=== PATIENT | female | born 2000 | race Caucasian/White ===

== ENCOUNTER 2019-09-26 01:40 | Emergency (ER) | payer MEDICAID ==
[2019-09-26 02:02] VITALS: BP 128/71
[2019-09-26 02:42] LABS: Basophils % (Auto) 0.2 % (0.0-1.8); Eosinophils % (Auto) 0.6 % (0.0-4.3); Hematocrit 39.2 % (30.3-42.9); Hemoglobin 13.5 gm/dl (10.1-14.3); Lymphocytes # (Auto) 2.4 K/mm3 (1.2-5.4); Lymphocytes % (Auto) 31.2 % (13.4-35.0); Mean Corpuscular HGB Conc 35 % (30-34); Mean Corpuscular Volume 95 fl (79-97); Monocytes # (Auto) 0.6 K/mm3 (0.0-0.8); Monocytes % (Auto) 7.8 % (0.0-7.3); Platelet Count 256 K/mm3 (140-440); Red Blood Count 4.13 M/mm3 (3.65-5.03); Red Cell Distribution Width 12.8 % (13.2-15.2)
--- NOTE | 2019-09-26 04:25 | Ultrasound Report ---
ULTRASOUND OBSTETRIC Indication: 5 weeks /abd cramping Findings: There is a single, living intrauterine . [place]-rump length = 0.61 cm = 6 weeks, 3 day(s). heart rate ranged from 99-104 beats per minute.. Right ovary is unremarkable. The left ovary is not seen. Impression: Single, living intrauterine with estimated sonographic age of 6 weeks, 3 day(s). Signer Name: Amilcar Jara MD Signed: 09/26/2019 4:21 AM Workstation Name: [id number]
[2019-09-26] MEDS ORDERED: diphenhydrAMINE 25 MG CAP PO ONE (04:58)
[2019-09-26] MEDS ORDERED: METOCLOPRAMIDE 10 MG TAB PO ONE (04:58)
--- NOTE | 2019-09-26 05:05 | Emergency Department Report ---
ED General Adult HPI - General Chief complaint: Abdominal Pain Stated complaint: PREG 5WKS/VOMITING/HOT FLASHES Time Seen by Provider: 09/26/19 04:39 Source: patient Mode of arrival: Ambulatory Limitations: No Limitations - History of Present Illness Initial comments: 19-year-old -[place] female patient who is 5 weeks presents with complaints of lower abdominal cramping, vaginal spotting, and nausea and vomiting x 1.5 weeks. She denies any dysuria or hematuria or vaginal discharge. She also denies any hematemesis/coffee ground emesis. She is . She states lower abdominal pain is intermittent and rates it as a 7/10 in severity. -: Sudden Improves with: none Worsens with: none Associated Symptoms: denies other symptoms - Related Data Previous Rx's Medication Instructions Recorded Last Taken Type Metoclopramide [Reglan] 10 mg PO TID PRN #15 tab 09/26/19 Unknown Rx diphenhydrAMINE [Benadryl CAP] 25 mg PO Q8HR PRN #15 capsule 09/26/19 Unknown Rx Allergies Allergy/AdvReac Type Severity Reaction Status Date / Time tioconazole Allergy Swelling Verified 09/26/19 02:03 [From Monistat 1 (tioconazole)] ED Review of Systems ROS: Stated complaint: PREG 5WKS/VOMITING/HOT FLASHES Other details as noted in HPI Constitutional: denies: chills, diaphoresis, fever, malaise Respiratory: denies: cough, shortness of breath Cardiovascular: denies: chest pain Gastrointestinal: abdominal pain, nausea, vomiting. denies: diarrhea, constipation, hematemesis, melena, hematochezia Genitourinary: denies: urgency, dysuria, frequency, hematuria Musculoskeletal: denies: back pain Skin: denies: rash, lesions Neurological: denies: headache, weakness, paresthesias ED Past Medical Hx - Past Medical History Previous Medical History?: Yes Hx Asthma: Yes - Surgical History Past Surgical History?: Yes Additional Surgical History: c sec X1 - Social History Smoking Status: Never Smoker Substance Use Type: None - Medications Home Medications: Home Medications Medication Instructions Recorded Confirmed Last Taken Type Metoclopramide [Reglan] 10 mg PO TID PRN #15 tab 09/26/19 Unknown Rx diphenhydrAMINE [Benadryl CAP] 25 mg PO Q8HR PRN #15 capsule 09/26/19 Unknown Rx ED Physical Exam - General Limitations: No Limitations General appearance: alert, in no apparent distress - Head Head exam: Present: atraumatic, normocephalic - Eye Eye exam: Present: normal appearance. Absent: scleral icterus - ENT ENT exam: Present: mucous membranes moist - Neck Neck exam: Present: normal inspection - Respiratory Respiratory exam: Present: normal lung sounds bilaterally. Absent: respiratory distress - Cardiovascular Cardiovascular Exam: Present: regular rate, normal rhythm. Absent: systolic murmur, diastolic murmur, rubs, gallop - GI/Abdominal GI/Abdominal exam: Present: soft, tenderness (minimal suprapubic tenderness noted). Absent: distended, guarding, rebound, rigid - Extremities Exam Extremities exam: Present: normal inspection, full ROM - Back Exam Back exam: Present: normal inspection. Absent: CVA tenderness (R), CVA tenderness (L) - Neurological Exam Neurological exam: Present: alert, oriented X3 - Psychiatric Psychiatric exam: Present: normal affect, normal mood - Skin Skin exam: Present: warm, dry, intact, normal color. Absent: rash ED Course Vital Signs 09/26/19 01:55 Temperature 98.0 F Pulse Rate 82 Respiratory 18 Rate Blood Pressure 128/71 O2 Sat by Pulse 99 Oximetry ED Medical Decision Making - Lab Data Result diagrams: 09/26/19 02:30 - Radiology Data Radiology results: report reviewed ULTRASOUND OBSTETRIC Indication: 5 weeks /abd cramping Findings: There is a single, living intrauterine . [place]-rump length = 0.61 cm = 6 weeks, 3 day(s). heart rate ranged from 99-104 beats per minute.. Right ovary is unremarkable. The left ovary is not seen. Impression: Single, living intrauterine with estimated sonographic age of 6 weeks, 3 day(s). - Medical Decision Making 19-year-old female patient presents with complaints of lower abdominal cramping pain, vaginal spotting, and nausea and vomiting x 1.5 weeks. Ultrasound shows viable 6 weeks 4 days without any abnormal findings. CBC shows normal white count. Patient is nontoxic-appearing. UA results are pending. Patient is refusing blood type and Rh stating she is ready to leave. Patient encouraged to wait for results of UA and informed of the importance of checking her blood type and Rh given she has vaginal bleeding. Patient states she wants to sign out AMA. Patient states she is not currently following with a EXPENSE ANALYST-EXPENSE ANALYST information provided Critical care attestation.: If time is entered above; I have spent that time in minutes in the direct care of this critically ill patient, excluding procedure time. ED Disposition Clinical Impression: Vaginal bleeding during , Nausea/vomiting in , 6 weeks gestation of Disposition: LEFT AGAINST MED ADVICE Is pt being admited?: No Condition: Stable Instructions: (ED) Prescriptions: diphenhydrAMINE [Benadryl CAP] 25 mg PO Q8HR PRN #15 capsule PRN Reason: Nausea Metoclopramide [Reglan] 10 mg PO TID PRN #15 tab PRN Reason: Nausea Referrals: DYANA DUARTE MD [Staff Physician] - 2-3 Days
[2019-09-26 05:19] LABS: Bacteria,Urine 1+ /HPF (Negative); Bilirubin,Urine NEG (Negative); Blood,Urine NEG (Negative); Color,Urine Straw (Yellow); Protein,Urine <15 mg/dL mg/dL (Negative); Urobilinogen,Urine < 2.0 mg/dL (<2.0)
== END 2019-09-26 05:32 | disposition left against medical advice (07) ==
LOC: ED 01:40
DX: O46.91 Antepartum hemorrhage, unspecified, first trimester (principal); O21.8 Other vomiting complicating pregnancy; Z3A.01 Less than 8 weeks gestation of pregnancy; J45.909 Unspecified asthma, uncomplicated; Z98.890 Other specified postprocedural states; Z79.899 Other long term (current) drug therapy; Z88.8 Allergy status to other drugs, medicaments and biological substances
CPT/HCPCS: 36415; 76801; 81001; 84702; 85025

== ENCOUNTER 2019-10-30 21:25 | Emergency (ER) | payer SELFPAY ==
--- NOTE | 2019-10-30 22:13 | Emergency Department Report ---
<SHARAD NORTON - Last Filed: 10/30/19 23:31> ED Psych HPI - General Chief Complaint: Medical Clearance Stated Complaint: POSS OVERDOSE Time Seen by Provider: 10/30/19 21:43 Source: patient, EMS Mode of arrival: Stretcher Limitations: No Limitations - History of Present Illness Initial Comments: Shannan is 19 yo female who presents with suicidal ideation and drug overdose. She was angry after an argument with her boyfriend. She told him that she wanted to harm herself. She took 6 tabs of Tylenol PM at 6:30 PM in order to sleep. She has hx of depression with previous . Her daughter is now 3 years old. She is 11 weeks . She has received care at [facility]. She arrived per EMS. MD Complaint: suicidal ideation -: This evening Associated Psychiatric Symptoms: suicidal ideation History of same: No Quality: resolved prior to arrival Improves With: none Worsens With: none Context: significant life stressor (argument with boyfriend) If Self Harm: intentional overdose - Related Data Previous Rx's Medication Instructions Recorded Last Taken Type Metoclopramide [Reglan] 10 mg PO TID PRN #15 tab 09/26/19 Unknown Rx diphenhydrAMINE [Benadryl CAP] 25 mg PO Q8HR PRN #15 capsule 09/26/19 Unknown Rx Allergies Allergy/AdvReac Type Severity Reaction Status Date / Time tioconazole Allergy Swelling Verified 09/26/19 02:03 [From Monistat 1 (tioconazole)] ED Review of Systems Comment: All other systems reviewed and negative Constitutional: denies: fever, malaise Respiratory: denies: cough Cardiovascular: denies: chest pain Psychiatric: suicidal thoughts ED Past Medical Hx - Past Medical History Previous Medical History?: Yes Hx Asthma: Yes - Surgical History Past Surgical History?: Yes Additional Surgical History: c sec X1 - Social History Smoking Status: Never Smoker Substance Use Type: None - Medications Home Medications: Home Medications Medication Instructions Recorded Confirmed Last Taken Type Metoclopramide [Reglan] 10 mg PO TID PRN #15 tab 09/26/19 Unknown Rx diphenhydrAMINE [Benadryl CAP] 25 mg PO Q8HR PRN #15 capsule 09/26/19 Unknown Rx ED Physical Exam - General Limitations: No Limitations General appearance: alert, in no apparent distress - Head Head exam: Present: atraumatic, normocephalic - Eye Eye exam: Present: normal appearance - ENT ENT exam: Present: mucous membranes moist - Neck Neck exam: Present: normal inspection, full ROM - Respiratory Respiratory exam: Present: normal lung sounds bilaterally. Absent: respiratory distress, wheezes, rales, rhonchi - Cardiovascular Cardiovascular Exam: Present: regular rate, normal rhythm, normal heart sounds. Absent: systolic murmur, diastolic murmur, rubs, gallop - GI/Abdominal GI/Abdominal exam: Present: soft, normal bowel sounds. Absent: distended, tenderness, guarding, rebound - Extremities Exam Extremities exam: Present: normal inspection - Neurological Exam Neurological exam: Present: alert, oriented X3 - Psychiatric Psychiatric exam: Present: normal affect, agitated, other (Angry) - Skin Skin exam: Present: warm, dry, intact, normal color. Absent: rash ED Medical Decision Making - Medical Decision Making Shannan presents with suicidal ideation and intentional drug overdose. Fortunately the amount of Tylenol and Benadryl is not toxic. Due to poor insight and impulsivity, she is at risk of endangering her self and fetus. Therefore, she is placed on 1013 involuntary hold protocol. She is medically clear for psychiatric care. Shannan has been uncooperative with treatment plan. She is upset that she will be in involuntary hold. Her mother at the bedside is in agreement that she will need psychiatric care. Mother agrees with treatment plan. She has refused to change from her clothing into scrubs according to our protocol. She would not cooperate with blood draw. ED Disposition Clinical Impression: Overdose Qualifiers: Encounter type: initial encounter Injury intent: accidental or unintentional Qualified Code(s): T50.901A - Poisoning by unspecified drugs, medicaments and biological substances, accidental (unintentional), initial encounter Disposition: DC-01 TO HOME OR SELFCARE Condition: Stable <WYATT NORTON - Last Filed: 10/31/19 14:04> ED Review of Systems ROS: Stated complaint: POSS OVERDOSE Other details as noted in HPI ED Course Vital Signs 10/30/19 10/31/19 10/31/19 21:49 01:15 03:00 Temperature 98.4 F 98.3 F Pulse Rate 99 H 94 H Respiratory 16 20 17 Rate Blood Pressure 109/68 109/70 [Left] O2 Sat by Pulse 99 100 99 Oximetry 10/31/19 07:47 Temperature Pulse Rate Respiratory 15 Rate Blood Pressure [Left] O2 Sat by Pulse Oximetry - Reevaluation(s) Reevaluation #1: 10/31/19 14:02 Patient is a 19-year-old female who was brought in yesterday because family was concerned that she wanted to harm herself. Patient intentionally took 1500 mg of acetaminophen with Benadryl in order to try to sleep. When she went to sleep family could not reach her and they assumed that she had tried to harm herself. Police were called and she was brought into the emergency department. Patient was able to sleep and rest here overnight. Patient states that she has no social reason to harm herself and that she does want to live for her 3-year-old child and she is currently as well which was planned. Patient has contracted for safety and was been seen by our mental health assessors and her 1013 has been rescinded. Patient is stable for discharge at this time. ED Medical Decision Making - Lab Data Result diagrams: 10/31/19 02:44 10/31/19 02:44 Critical care attestation.: If time is entered above; I have spent that time in minutes in the direct care of this critically ill patient, excluding procedure time. ED Disposition Is pt being admited?: No Does the pt Need Aspirin: No Time of Disposition: 14:04
[2019-10-31 03:15] LABS: Basophils % (Auto) 0.1 % (0.0-1.8); Eosinophils % (Auto) 0.1 % (0.0-4.3); Hematocrit 37.5 % (30.3-42.9); Lymphocytes # (Auto) 2.1 K/mm3 (1.2-5.4); Lymphocytes % (Auto) 26.8 % (13.4-35.0); Mean Corpuscular HGB Conc 35 % (30-34); Mean Corpuscular Volume 96 fl (79-97); Monocytes # (Auto) 0.3 K/mm3 (0.0-0.8); Platelet Count 225 K/mm3 (140-440); Red Blood Count 3.92 M/mm3 (3.65-5.03); Red Cell Distribution Width 12.3 % (13.2-15.2)
[2019-10-31 03:39] LABS: Alanine Aminotransferase 8 units/L (7-56); Albumin 4.4 g/dL (3.9-5); BUN/Creatinine Ratio 12; Blood Urea Nitrogen 7 mg/dL (7-17); Calcium 9.6 mg/dL (8.4-10.2); Hemolysis Index 0
[2019-10-31 05:54] LABS: Amphetamine Screen,Urine PRESUMPTIVE NEGATIVE; Benzodiazepines Screen,Urine PRESUMPTIVE NEGATIVE; Cannabinoid Screen,Urine PRESUMPTIVE NEGATIVE; Cocaine Screen,Urine PRESUMPTIVE NEGATIVE; Methadone Screen,Urine PRESUMPTIVE NEGATIVE; Opiate Screen,Urine PRESUMPTIVE NEGATIVE
[2019-10-31 06:01] LABS: Bacteria,Urine 2+ /HPF (Negative); Bilirubin,Urine NEG (Negative); Blood,Urine NEG (Negative); Color,Urine Yellow (Yellow); Protein,Urine <15 mg/dL mg/dL (Negative); Urobilinogen,Urine < 2.0 mg/dL (<2.0)
[2019-10-31 14:16] VITALS: BP 107/68
== END 2019-10-31 14:17 | disposition home or self-care (01) ==
LOC: ED 21:25
DX: O9A.211 Injury, poisoning and certain other consequences of external causes complicating pregnancy, first trimester (principal); T50.901A Poisoning by unspecified drugs, medicaments and biological substances, accidental (unintentional), initial encounter; O99.511 Diseases of the respiratory system complicating pregnancy, first trimester; J45.909 Unspecified asthma, uncomplicated; Z88.8 Allergy status to other drugs, medicaments and biological substances; Z3A.11 11 weeks gestation of pregnancy
CPT/HCPCS: 36415; 80053; 80307; 80320; 81001; 85025; G0480

== ENCOUNTER 2019-11-05 22:39 | Emergency (ER) | payer SELFPAY | END 2019-11-05 22:45 | disposition left against medical advice (07) | LOC: ED 22:39 | DX: O26.891 Other specified pregnancy related conditions, first trimester (principal); R10.30 Lower abdominal pain, unspecified; Z3A.12 12 weeks gestation of pregnancy; Z53.21 Procedure and treatment not carried out due to patient leaving prior to being seen by health care provider ==

== ENCOUNTER 2019-11-10 02:06 | Emergency (ER) | payer SELFPAY | END 2019-11-10 02:09 | disposition left against medical advice (07) | LOC: ED 02:06 | DX: O26.891 Other specified pregnancy related conditions, first trimester (principal); Z3A.13 13 weeks gestation of pregnancy; Z53.21 Procedure and treatment not carried out due to patient leaving prior to being seen by health care provider ==

== ENCOUNTER 2019-12-11 13:06 | Emergency (ER) | payer SELFPAY ==
--- NOTE | 2019-12-11 13:29 | Emergency Department Report ---
ED Female HPI - General Chief complaint: Vaginal Bleeding Stated complaint: 17 WKS PREG, CRAMPING. BLEEDING Time Seen by Provider: 12/11/19 13:28 Source: patient Mode of arrival: Ambulatory Limitations: No Limitations - History of Present Illness Initial comments: 19 YO FEMALE COME TO ER WITH BILATERAL GROIN PAIN. SHE IS PREG BUT OBGYN WILL NOT SEE HER DUE TO INSURANCE ISSUES. REPORTED VAG BLEED TO TRIAGE BUT DENIED TO ME. NO ABNORMAL VAG DC. NO BACK OR ABD PAIN. NOT PASSING TISSUE. NO FEVER OR CHILLS. AMBULATORY AND TAKING PO MD Complaint: vaginal bleeding -: Gradual Quality: cramping Worsens with: none Are you Now?: Yes - Related Data Sexually active: Yes : 4 Para: 1 A: 2 Previous Rx's Medication Instructions Recorded Last Taken Type Metoclopramide [Reglan] 10 mg PO TID PRN #15 tab 09/26/19 Unknown Rx diphenhydrAMINE [Benadryl CAP] 25 mg PO Q8HR PRN #15 capsule 09/26/19 Unknown Rx Nitrofurantoin [place]/M-Cryst 100 mg PO Q12HR #10 capsule 12/11/19 Unknown Rx [Macrobid CAP] Allergies Allergy/AdvReac Type Severity Reaction Status Date / Time tioconazole Allergy Swelling Verified 12/11/19 13:09 [From Monistat 1 (tioconazole)] ED Review of Systems ROS: Stated complaint: 17 WKS PREG, CRAMPING. BLEEDING Other details as noted in HPI Comment: All other systems reviewed and negative ED Past Medical Hx - Past Medical History Previous Medical History?: Yes Hx Asthma: Yes (EXCERISE INDUCED) Additional medical history: OVARIAN CYST - Surgical History Past Surgical History?: Yes Additional Surgical History: c sec X1 - Family History Family history: no significant - Social History Smoking Status: Never Smoker Substance Use Type: None - Medications Home Medications: Home Medications Medication Instructions Recorded Confirmed Last Taken Type Metoclopramide [Reglan] 10 mg PO TID PRN #15 tab 09/26/19 Unknown Rx diphenhydrAMINE [Benadryl CAP] 25 mg PO Q8HR PRN #15 capsule 09/26/19 Unknown Rx Nitrofurantoin [place]/M-Cryst 100 mg PO Q12HR #10 capsule 12/11/19 Unknown Rx [Macrobid CAP] ED Physical Exam - General Limitations: No Limitations General appearance: alert, in no apparent distress - Head Head exam: Present: atraumatic, normocephalic - Eye Eye exam: Present: normal appearance - ENT ENT exam: Present: mucous membranes moist - Neck Neck exam: Present: normal inspection - Respiratory Respiratory exam: Present: normal lung sounds bilaterally. Absent: respiratory distress - Cardiovascular Cardiovascular Exam: Present: regular rate, normal rhythm. Absent: systolic murmur, diastolic murmur, rubs, gallop - GI/Abdominal GI/Abdominal exam: Present: soft, normal bowel sounds - Extremities Exam Extremities exam: Present: normal inspection - Back Exam Back exam: Present: normal inspection - Neurological Exam Neurological exam: Present: alert, oriented X3 - Psychiatric Psychiatric exam: Present: normal affect, normal mood - Skin Skin exam: Present: warm, dry, intact, normal color. Absent: rash ED Course Vital Signs 12/11/19 13:12 Temperature 98.2 F Pulse Rate 114 H Respiratory 18 Rate Blood Pressure 114/63 O2 Sat by Pulse 97 Oximetry ED Medical Decision Making - Lab Data Result diagrams: 12/11/19 13:45 12/11/19 13:45 - Radiology Data Radiology results: report reviewed, image reviewed - Medical Decision Making Vital Signs 12/11/19 13:12 Temperature 98.2 F Pulse Rate 114 H Respiratory 18 Rate Blood Pressure 114/63 O2 Sat by Pulse 97 Oximetry Labs 12/11/19 12/11/19 13:35 13:45 WBC 5.7 RBC 3.27 L Hgb 11.3 Hct 31.0 MCV 95 MCH 34 H MCHC 36 H RDW 13.4 Plt Count 194 Urine Color Yellow Urine Turbidity Slightly-cloudy Urine pH 7.0 Ur Specific [place] 1.018 Urine Protein <15 mg/dl Urine Glucose (UA) Neg Urine Ketones Neg Urine Blood Neg Urine Nitrite Neg Urine Bilirubin Neg Urine Urobilinogen 4.0 Ur Leukocyte Esterase Mod Urine WBC (Auto) 24.0 H Urine RBC (Auto) 3.0 U Epithel Cells (Auto) 19.0 H Urine Mucus Few Urine HCG, Qual Positive A Labs 12/11/19 12/11/19 12/11/19 13:35 13:45 13:45 WBC 5.7 RBC 3.27 L Hgb 11.3 Hct 31.0 MCV 95 MCH 34 H MCHC 36 H RDW 13.4 Plt Count 194 Sodium 136 L Potassium 4.5 Chloride 103.6 Carbon Dioxide 20 L Anion Gap 17 BUN 8 Creatinine 0.6 L Estimated GFR > 60 BUN/Creatinine Ratio 13 Glucose 78 Calcium 9.0 Urine Color Yellow Urine Turbidity Slightly-cloudy Urine pH 7.0 Ur Specific [place] 1.018 Urine Protein <15 mg/dl Urine Glucose (UA) Neg Urine Ketones Neg Urine Blood Neg Urine Nitrite Neg Urine Bilirubin Neg Urine Urobilinogen 4.0 Ur Leukocyte Esterase Mod Urine WBC (Auto) 24.0 H Urine RBC (Auto) 3.0 U Epithel Cells (Auto) 19.0 H Urine Mucus Few Urine HCG, Qual Positive A Vital Signs 12/11/19 13:12 Temperature 98.2 F Pulse Rate 114 H Respiratory 18 Rate Blood Pressure 114/63 O2 Sat by Pulse 97 Oximetry LABS NOTED RH POS UA NOTED IV ROCEPHIN AND NS GIVEN US NOTED DC HOME WITH DC POC AND OBGYN FOLLOW UP IN 48 HOURS SHE HAS SEEN PREMIER X 1 THIS PREG. SHE VERBALIZES UNDERSTANDING THAT HER NOT GETTING CARE INC RISK OF MORTALITY - Differential Diagnosis RO ECTOPIC/THREATENED AB/SPONT AB/UTI Critical care attestation.: If time is entered above; I have spent that time in minutes in the direct care of this critically ill patient, excluding procedure time. ED Disposition Clinical Impression: Disposition: DC-01 TO HOME OR SELFCARE Is pt being admited?: No Does the pt Need Aspirin: No Condition: Stable Instructions: (ED) Additional Instructions: follow up with obgyn avoid drugs/alcohol safe sex take tylenol for pain take daily over the counter multivitamin YOU NEED TO SEE OBGYN (NOT ER) IN 48 HOURS REFERRAL BELOW Prescriptions: Nitrofurantoin [place]/M-Cryst [Macrobid CAP] 100 mg PO Q12HR #10 capsule Referrals: PRIMARY CAREMD [Primary Care Provider] - 3-5 Days RONAK WHEELER MD [Staff Physician] - 3-5 Days Time of Disposition: 14:17
[2019-12-11 14:02] LABS: Bilirubin,Urine NEG (Negative); Blood,Urine NEG (Negative); Color,Urine Yellow (Yellow); Mucus,Urine FEW /HPF; Protein,Urine <15 mg/dL mg/dL (Negative)
[2019-12-11 14:04] LABS: HCG Qualitative,Urine Positive (Negative)
[2019-12-11 14:10] LABS: Hemoglobin 11.3 gm/dl (10.1-14.3); Mean Corpuscular HGB Conc 36 % (30-34); Mean Corpuscular Volume 95 fl (79-97); Platelet Count 194 K/mm3 (140-440); Red Blood Count 3.27 M/mm3 (3.65-5.03); Red Cell Distribution Width 13.4 % (13.2-15.2)
[2019-12-11 14:19] LABS: BUN/Creatinine Ratio 13; Blood Urea Nitrogen 8 mg/dL (7-17); Hemolysis Index 11
[2019-12-11] MEDS ORDERED: SODIUM CHLORIDE 0.9% 1000 ML 1,000 ML IV ONE (14:40)
[2019-12-11] MEDS ORDERED: cefTRIAXone/NS 1 GM/50 ML 1 GM/50 ML BAG IV ONE (14:40)
--- NOTE | 2019-12-11 14:44 | Ultrasound Report ---
OB ULTRASOUND >= 14 WEEKS FETUS INDICATION: VAG BLEED IN PREG COMPARISON: 09/26/2019 FINDINGS: A single gestation intrauterine is present with breech presentation. The placenta is anteri or, grade 1 and free of the cervical os. heart tones measure 161 bpm. The cervix is closed and measures 4.1 cm. Qualitative amniotic fluid volume is within normal limits. JUANCHO was not measured. anatomical survey was not performed. Biparietal diameter is 4.0 cm which equals 18 weeks 0 days. Head circumference is 14.8 cm which equals 18 weeks 0 days. Abdominal circumference is 12.6 cm which equals 18 weeks 2 days. Femur length is 2.7 cm which equals 18 weeks 2 days. Overall estimated sonographic age is 18 weeks 1 day HC/AC ratio: 1.2 Cephalic index: 82.8 Estimated weight 228 g.. IMPRESSION: Viable single intrauterine as described. No acute abnormality is detected. Signer Name: Manpreet Arriaza Jr, MD Signed: 12/11/2019 2:40 PM Workstation Name: [id number]
[2019-12-11 15:56] VITALS: BP 102/56
== END 2019-12-11 15:56 | disposition home or self-care (01) ==
LOC: ED 13:06
DX: O46.92 Antepartum hemorrhage, unspecified, second trimester (principal); Z3A.17 17 weeks gestation of pregnancy; J45.909 Unspecified asthma, uncomplicated; Z79.899 Other long term (current) drug therapy; Z88.8 Allergy status to other drugs, medicaments and biological substances
CPT/HCPCS: 36415; 76805; 80048; 81001; 81025; 84702; 85027; 86900; 86901; 87076; 87086; 87186; 96365; 99284; J0696; J7030

== ENCOUNTER 2020-01-25 20:59 | Outpatient (CLI) | payer MEDICAID ==
[2020-01-25 21:40] LABS: Bacteria,Urine 1+ /HPF (Negative); Bilirubin,Urine NEG (Negative); Blood,Urine NEG (Negative); Color,Urine Yellow (Yellow); Mucus,Urine 3+ /HPF; Protein,Urine <15 mg/dL mg/dL (Negative)
[2020-01-25] MEDS ORDERED: BUTALB/ACETAMINOPHEN/CAFFEINE TAB PO ONE (21:45)
[2020-01-25 23:27] VITALS: BP 102/53
== END 2020-01-25 22:13 | disposition home or self-care (01) ==
LOC: TRG 20:59 → APU 21:00 → TRG 22:13
PROVIDERS: ATTEND Obstetrics & Gynecology
DX: O26.892 Other specified pregnancy related conditions, second trimester (principal); R10.9 Unspecified abdominal pain; G43.809 Other migraine, not intractable, without status migrainosus
CPT/HCPCS: 59025; 81001

== ENCOUNTER 2020-05-08 11:50 | Inpatient (IN) | payer MEDICAID ==
[2020-05-08] MEDS ORDERED: LACTATED RINGERS 1,000 ML ONE (12:22)
[2020-05-08] MEDS ORDERED: FAMOTIDINE 20 MG/2 ML INJ IV SCH (12:23)
[2020-05-08] MEDS ORDERED: BICITRA ORAL LIQD 30ML PO SCH (12:23)
[2020-05-08] MEDS ORDERED: METOCLOPRAMIDE 10 MG/2 ML INJ IV SCH (12:23)
[2020-05-08] MEDS ORDERED: ceFAZolin/Water 2 GM/20 ML 2 GM/20 ML SYRINGE IV NR (13:00)
[2020-05-08] MEDS ORDERED: LACTATED RINGERS 1,000 ML IV SCH (13:00)
[2020-05-08] MEDS ORDERED: OXYTOCIN 20 UNIT/1000ML DRIP 20 UNITS/1,000 ML BAG IV SCH ×2 (13:00→15:00)
[2020-05-08 13:14] LABS: Basophils % (Auto) 0.2 % (0.0-1.8); Eosinophils % (Auto) 0.4 % (0.0-4.3); Hematocrit 28.1 % (30.3-42.9); Hemoglobin 9.9 gm/dl (10.1-14.3); Lymphocytes # (Auto) 2.1 K/mm3 (1.2-5.4); Lymphocytes % (Auto) 22.4 % (13.4-35.0); Mean Corpuscular HGB Conc 35 % (30-34); Mean Corpuscular Volume 82 fl (79-97); Monocytes # (Auto) 0.6 K/mm3 (0.0-0.8); Monocytes % (Auto) 6.5 % (0.0-7.3); Platelet Count 201 K/mm3 (140-440); Red Blood Count 3.42 M/mm3 (3.65-5.03); Red Cell Distribution Width 14.6 % (13.2-15.2)
--- NOTE | 2020-05-08 13:48 | Anesthesia Consultation ---
Anesthesia Consult and Med Hx Date of service: 05/08/20 - Airway Anesthetic Teeth Evaluation: Good ROM Head & Neck: Adequate Mental/Hyoid Distance: Adequate Mallampati Class: Class II Intubation Access Assessment: Probably Good - Pulmonary Exam CTA: Yes - Cardiac Exam Cardiac Exam: RRR - Pre-Operative Health Status ASA Pre-Surgery Classification: ASA2 Proposed Anesthetic Plan: Spinal - Pulmonary Hx Asthma: Yes COPD: No Hx Pneumonia: No - Cardiovascular System Hx Hypertension: No - Central Nervous System Hx Seizures: No Hx Psychiatric Problems: No - Endocrine Hx Renal Disease: No Hx End Stage Renal Disease: No Hx Hypothyroidism: No Hx Hyperthyroidism: No - Hematic Hx Anemia: No Hx Sickle Cell Disease: No - Other Systems Hx Alcohol Use: No
--- NOTE | 2020-05-08 13:49 | Anesthesia Day of Surgery ---
Anesthesia Day of Surgery - Day of Surgery Patient Examined: Yes Patient H&P Reviewed: Yes Patient is NPO: Yes
[2020-05-08] MEDS ORDERED: NALOXONE 0.4 MG/1 ML INJ IV PRN (14:21)
[2020-05-08] MEDS ORDERED: LANOLIN/ZINC/DIMETHICONE (LANSINOH) 7 GM TP PRN (14:21)
[2020-05-08] MEDS ORDERED: MORPHINE 4 MG/1 ML INJ IV PRN (14:21)
[2020-05-08] MEDS ORDERED: WITCH HAZEL/ GLYCERIN PAD TP PRN (14:21)
--- NOTE | 2020-05-08 14:21 | History and Physical Report ---
History of Present Illness Date of examination: 05/08/20 Date of admission: 05/08/20 12:36 Chief complaint: contractions History of present illness: 19y/o @ 38+0 weeks presents in active labor with regular uterine contractions and advanced cervical dilation of 4cm. She denies leakage of fluid or vaginal bleeding. Past History Past Medical History: no pertinent history Past Surgical History: section Social history: single - Obstetrical History Expected Date of Delivery: 05/22/20 Actual Gestation: 38 Week(s) 0 Day(s) : 4 Para: 1 Hx # Term Pregnancies: 1 Number of Pregnancies: 0 Spontaneous Abortions: 0 Induced : 2 Number of Living Children: 1 Medications and Allergies Allergies Allergy/AdvReac Type Severity Reaction Status Date / Time tioconazole Allergy Swelling Verified 12/11/19 13:09 [From Monistat 1 (tioconazole)] Home Medications Medication Instructions Recorded Confirmed Last Taken Type Metoclopramide [Reglan] 10 mg PO TID PRN #15 tab 09/26/19 Unknown Rx diphenhydrAMINE [Benadryl CAP] 25 mg PO Q8HR PRN #15 capsule 09/26/19 Unknown Rx Nitrofurantoin [place]/M-Cryst 100 mg PO Q12HR #10 capsule 12/11/19 Unknown Rx [Macrobid CAP] Active Meds: Active Medications Citric Acid/Sodium Citrate (Bicitra) 30 ml PO ONCE PATRICIA Stop: 05/09/20 12:22 Last Admin: 05/08/20 13:57 Dose: 30 ml Documented by: Famotidine (Pepcid) 20 mg IV ONCE PATRICIA Stop: 05/09/20 12:22 Last Admin: 05/08/20 13:57 Dose: 20 mg Documented by: Lactated Ringer's (Lactated Ringers) 1,000 mls @ 2,250 mls/hr IV PREOP PATRICIA Stop: 05/09/20 13:27 Last Admin: 05/08/20 13:56 Dose: 2,250 mls/hr Documented by: Oxytocin/Sodium Chloride (Pitocin/Ns 20 Unit/1000ml Drip) 20 units in 1,000 mls @ 0 mls/hr IV DIRECT PATRICIA Cefazolin Sodium (Ancef/Sterile Water 2 Gm/20 Ml) 2 gm in 20 mls @ 80 mls/hr IV PREOP NR; Protocol Stop: 05/09/20 12:59 Metoclopramide HCl (Reglan) 10 mg IV ONCE PATRICIA Stop: 05/09/20 12:22 Last Admin: 05/08/20 13:58 Dose: 10 mg Documented by: Review of Systems All systems: negative Genitourinary: pelvic pain, contractions, no leakage of fluid - Vital Signs Vital signs: Vital Signs Pulse BP 85 121/75 05/08/20 12:30 05/08/20 12:30 Temp Pulse Resp BP Pulse Ox 98 F 85 121/75 05/08/20 13:40 05/08/20 13:40 05/08/20 13:40 - Physical Exam Breasts: Positive: deferred Cardiovascular: Regular rate Lungs: Positive: Clear to auscultation Abdomen: Positive: normal appearance Results Result Diagrams: 05/08/20 12:25 Abnormal lab results 05/08/20 Range/Units 12:25 RBC 3.42 L (3.65-5.03) M/mm3 Hgb 9.9 L (10.1-14.3) gm/dl Hct 28.1 L (30.3-42.9) % MCHC 35 H (30-34) % Seg Neutrophils % 70.5 H (40.0-70.0) % All other labs normal. Assessment and Plan - Patient Problems (1) Active labor at term Current Visit: Yes Status: Acute Plan to address problem: will proceed with a repeat delivery (2) Previous delivery affecting Current Visit: Yes Status: Acute
[2020-05-08] MEDS ORDERED: WATER FOR IRRIG STERILE 1,500 ML BOTTLE IR ONE (14:36)
[2020-05-08] MEDS ORDERED: SODIUM CHLORIDE 0.9% IRR 1,500 ML BOTTLE IR ONE (14:38)
[2020-05-08] MEDS ORDERED: D5W/LACTATED RINGERS 1,000 ML IV SCH (15:00)
--- NOTE | 2020-05-08 15:21 | Procedure Note ---
OB Delivery Note - Delivery Date of Delivery: 05/08/20 Surgeon: EUNICE DUARTE Estimated blood loss: other (900ml) - Section Preop diagnosis: repeat Postop diagnosis: same section procedure: section, repeat low transverse Disposition: PACU Complications: none - Infant A at 1 minute: 8 at 5 minutes: 9 Infant Gender: Male (Weight 8 pounds 3 ounces)
--- NOTE | 2020-05-08 15:22 | Operative Report ---
Operative Report Operative Report: Date of surgery: May 08, 2020 Preoperative diagnosis: at 38+0 weeks; previous delivery; active labor at term Postoperative diagnosis: Same as above Procedure: Repeat low transverse delivery Surgeon: Andressa De Souza M.D. Anesthesia: Regional Estimated blood loss: 900 mL IV fluids: 1200 mL Urine output: 150 mL Findings: Liveborn male with Apgars of 8 and 9 weight 8 pounds 3 ounces Indications: 19-year-old -0-2-1 at 30+0 weeks who presents in active labor with a history of a prior delivery. The patient declines a trial of labor Procedure: The patient was taken to the operating room and given regional anesthesia without complication. She was prepped and draped in a normal sterile fashion. A Pfannenstiel skin incision was made down to layer the fascia which was nicked in the midline extended laterally with the Bovie cautery. The superior aspect of the rectus fascia was grasped with Ean clamps x2 and the rectus muscles off sharply. This was done in inferior fashion as well. The rectus muscle separate d midline and peritoneum entered bluntly. An Satinder retractor was then inserted. A bladder blade was placed. The vesicouterine peritoneum was then entered sharply with Metzenbaum scissors. A bladder flap was created digitally. A low transverse uterine incision was then made and extended digitally. There was clear fluid upon entry into the uterine cavity. The head was delivered through the incision with fundal pressure. The cord was clamped and cut x2 and was passed off to pediatrics. The placenta was then manually extracted. The uterus was then exteriorized and cleared of clots and debris. The uterine incision was then closed in a running locked fashion with 0 Vicryl additional imbricating stitch was applied for 2 layer closure. The posterior cul-de-sac was then copiously irrigated. The uterus was replaced back into the abdomen and pelvis were the gutters were then irrigated. The Satinder retractor was then removed. The peritoneum was then reapproximated with 3-0 Vicryl incorporating the rectus muscle. The fascia was then closed with 0 Vicryl in a running fashion. The skin was then reapproximated with 3-0 Monocryl on a Benjy needle subcuticular fashion. Steri-Strips to place across the incision and a Crede procedures performed at the end of the surgery. A pressure dressing was applied to the incision. The surgery productive of a liveborn male with Apgars of Apgars of 8 and 9 weight 8 pounds 3 ounces. The patient was taken to the recovery room in stable condition. All sponge laps and needle counts correct x2.
--- NOTE | 2020-05-08 15:58 | Progress Note ---
Labor Epidural - Labor Epidural Start Time: 15:40 Stop Time: 15:45 Performed by:: KEENAN GASTELUM Procedure: U/S guided bilateral tap block performed for post-operative pain requested by Dr. Issa. H&P & labs reviewed. Procedure explained, questions answered, consent obtained. Patient in the supine position with ekg, blood pressure cuff and pulse ox on and working in PACU. Timeout performed immediately before start of procedure. Probe placed in the mid-axillary line and the external oblique, internal oblique, and transverse abdominus muscles identified. Skin was cleansed with 0.5% Chlorahexadine and allowed to dry. A 4" 20 G Marie echogenic needle was advanced in plane until the tip was in the fascial plane between the internal oblique and the transverse abdominus. After negative aspiration 35 ml/side of [30 ml 0.5% Bupivacaine], [50 mcg dexmedetomidine], [8 mg dexamethasone], and [40 ml sterile saline] was injected in 5 ml increments with negative aspiration in between. Patient tolerated procedure well. Day SRNA
--- NOTE | 2020-05-08 15:58 | Post Anesthesia Evaluation ---
- Post Anesthesia Evaluation Patient Participated: Yes Airway Patent: Yes Stable Respiratory Function: Yes Nausea/Vomiting: No Temp > 96.8F: Yes Pain Manageable: Yes Adequeate Hydration: Yes Anesthesia Complications: No Block Receding Appropriately: Yes
[2020-05-08] MEDS ORDERED: dexAMETHasone 20 MG/5 ML VIAL ONE (16:05)
[2020-05-08] MEDS ORDERED: KETOROLAC 30 MG/1 ML INJ ONE ×2 (16:05→17:21)
[2020-05-08] MEDS ORDERED: OXYTOCIN 10 UNIT/1 ML INJ ONE (16:05)
[2020-05-08] MEDS ORDERED: BUPIVACAINE/PF (0.5%) 5 MG/1 ML 30 ML VIAL INFILTRATI ONE (16:05)
[2020-05-08] MEDS ORDERED: DEXMEDETOMIDINE 200 MCG/2 ML VIAL IV ONE (16:05)
[2020-05-08] MEDS ORDERED: ONDANSETRON 4 MG/2 ML INJ ONE ×2 (16:05→17:21)
[2020-05-08] MEDS ORDERED: PHENYLEPHRINE/NS 1,000 MCG/10 ML SYRINGE (OR USE) IV ONE ×2 (16:05→17:21)
[2020-05-08] MEDS ORDERED: SODIUM CHLORIDE P/F VIAL 10 ML 10 ML ONE (17:21)
[2020-05-08] MEDS: KETOROLAC 30 MG/1 ML INJ IV PRN (18:14)
[2020-05-09] MEDS: KETOROLAC 30 MG/1 ML INJ IV PRN (00:23)
[2020-05-09 02:04] LABS: Hepatitis B Surface Antigen Non-Reactive (Negative); Hepatitis C Virus Antibody Non-Reactive (NonReactive)
[2020-05-09 06:40] LABS: Hematocrit 22.9 % (30.3-42.9); Hemoglobin 7.4 gm/dl (10.1-14.3)
[2020-05-09] MEDS: FERROUS SULFATE 325 MG TAB PO SCH (09:44)
[2020-05-09] MEDS: oxyCODONE /ACETAMINOPHEN 5-325MG TAB PO PRN ×2 (09:45→17:26)
[2020-05-09] MEDS: IBUPROFEN 800 MG TAB PO PRN ×2 (10:37→17:59)
--- NOTE | 2020-05-09 11:54 | Progress Note ---
Assessment and Plan - Patient Problems (1) Active labor at term Current Visit: Yes Status: Acute Plan to address problem: Patient is doing well Routine postoperative care (2) Previous delivery affecting Current Visit: Yes Status: Acute Subjective - Subjective Date of service: 05/09/20 Interval history: Patient has been tolerating clear diet without complication. She notes having some solid foods without difficulty. She has voided spontaneously. Patient reports: appetite normal, voiding normally, pain well controlled [place]: doing well Objective - Vital Signs Latest vital signs: Vital Signs Temp Pulse Resp BP BP Pulse Ox 05/09/20 07:55 97.6 F 20 104/60 05/09/20 05:06 98.3 F 88 18 112/70 100 05/09/20 00:47 97.9 F 76 20 115/62 100 05/08/20 20:49 97.1 F L 70 18 103/70 99 05/08/20 17:15 97.4 F L 79 143 H 110/72 99 05/08/20 16:35 97.5 F L 66 16 91/53 98 05/08/20 16:30 66 17 96/55 98 05/08/20 16:15 80 16 99/64 98 05/08/20 16:00 83 16 109/64 98 05/08/20 15:45 78 14 94/56 98 05/08/20 15:40 80 15 95/49 98 05/08/20 15:33 97.5 F L 92 H 15 94/44 98 05/08/20 13:40 98 F 85 121/75 05/08/20 12:30 85 121/75 Intake and Output 05/08/20 05/09/20 05/09/20 22:59 06:59 14:59 Intake Total 1600 360 Output Total 180 2000 Balance 1420 -1640 Intake: IV 1600 Intake, Free Water 360 Output: Urine 180 2000 Indwelling Catheter 1700 Void 300 Other: Total, Output Amount 300 Estimated Blood Loss 900 - Exam Abdomen: Present: normal appearance, soft Uterus: Present: normal, firm Incision: Present: dressed - Labs Labs: Abnormal lab results 05/08/20 05/09/20 Range/Units 12:25 04:42 RBC 3.42 L (3.65-5.03) M/mm3 Hgb 9.9 L 7.4 L (10.1-14.3) gm/dl Hct 28.1 L 22.9 L (30.3-42.9) % MCHC 35 H (30-34) % Seg Neutrophils % 70.5 H (40.0-70.0) %
[2020-05-10] MEDS: IBUPROFEN 800 MG TAB PO PRN (02:39)
[2020-05-10] MEDS: oxyCODONE /ACETAMINOPHEN 5-325MG TAB PO PRN ×2 (04:09→17:48)
--- NOTE | 2020-05-10 08:22 | Progress Note ---
Assessment and Plan A: POD#2 s/p repeat at term Acute on chronic blood loss anemia H/o constipation P: Routine postop care Bowel regimen Abdominal Binder Change steristrips Subjective - Subjective Date of service: 05/10/20 Principal diagnosis: s/p repeat at term Interval history: Pt without unusual complaints. Reports h/o constipation prior to surgery where she may go 1-2 wks without a bowel movement. Patient reports: appetite normal, voiding normally, pain well controlled, flatus, ambulating normally, no bowel movement [place]: doing well Objective - Vital Signs Latest vital signs: Vital Signs Temp Pulse Resp BP BP Pulse Ox 05/10/20 04:09 16 05/10/20 02:39 16 05/10/20 01:30 98.0 F 99 H 20 121/67 100 05/09/20 16:06 98.1 F 77 20 106/64 97 05/09/20 12:47 98.0 F 82 20 111/73 98 Intake and Output 05/09/20 05/10/20 05/10/20 22:59 06:59 14:59 Intake Total 480 Balance 480 Intake: Oral 240 Intake, Free Water 240 Other: Total, Intake Amount 240 # Voids Void 2 - Exam Breasts: Present: deferred Abdomen: Present: soft, distention (mild ) Uterus: Present: fundal height below umbilicus Incision: Present: intact
[2020-05-10] MEDS: IBUPROFEN 800 MG TAB PO SCH ×3 (10:01→21:00)
[2020-05-10] MEDS: MAGNESIUM HYDROXIDE (MOM) ORAL LIQD UDC PO PRN (10:01)
[2020-05-10] MEDS: FERROUS SULFATE 325 MG TAB PO SCH (10:01)
[2020-05-11] MEDS: IBUPROFEN 800 MG TAB PO SCH ×2 (02:08→10:00)
[2020-05-11] MEDS: MAGNESIUM HYDROXIDE (MOM) ORAL LIQD UDC PO PRN (03:25)
[2020-05-11] MEDS: oxyCODONE /ACETAMINOPHEN 5-325MG TAB PO PRN ×2 (05:16→09:21)
--- NOTE | 2020-05-11 09:08 | Discharge Summary ---
Providers - Providers Date of Admission: 05/08/20 12:36 Date of discharge: 05/11/20 Attending physician: EUNICE DUARTE Primary care physician: EUNICE DUARTE Hospitalization Reason for admission: active labor Delivery: Procedure: section, repeat low transverse Incision: normal, dry, intact Other procedures: none complications: none Discharge diagnosis: IUP at term delivered Hospital course: Pt with a history of a previous C/S arrived in active labor and advanced dilation to 4cm. She desired to proceed with a repeat C/S. Her course was uneventful. She met discharge criteria on POD3 Condition at discharge: Good Disposition: DC-01 TO HOME OR SELFCARE - Discharge Diagnoses (1) Active labor at term Status: Acute (2) Previous delivery affecting Status: Acute Plan - Discharge Medications Prescriptions: Docusate Sodium [Colace] 100 mg PO BID PRN #60 capsule PRN Reason: Constipation Ferrous Sulfate [Feosol 325 MG tab] 325 mg PO TID #90 tablet Ibuprofen [Motrin] 800 mg PO Q8HR PRN #60 tablet PRN Reason: Pain , Severe (7-10) oxyCODONE /ACETAMINOPHEN [Percocet 5/325] 1 tab PO Q6HR PRN #30 tablet PRN Reason: Pain - Provider Discharge Summary Activity: no sex for 6 weeks, no heavy lifting 4 weeks, no strenuous exercise Diet: routine Instructions: routine Additional instructions: [] Smoking cessation referral if applicable(refer to patient education folder for contact #) [] Refer to [facility] Booklet Call your doctor immediately for: * Fever > 100.5 * Heavy vaginal bleeding ( >1 pad per hour) * Severe persistent headache * Shortness of breath * Reddened, hot, painful area to leg or breast * Drainage or odor from incision. * Keep incision clean and dry at all times and follow doctor's instructions regarding bathing/showering - Follow up plan Follow up: EUNICE DUARTE MD [Primary Care Provider] - 7 Days SYMONE JEROME CNM [Advanced Practice Nurse] - 14 Days
[2020-05-11] MEDS: FERROUS SULFATE 325 MG TAB PO SCH (09:21)
--- NOTE | 2020-05-11 12:27 | Progress Note ---
Assessment and Plan - Patient Problems (1) Active labor at term Current Visit: Yes Status: Acute (2) Previous delivery affecting Current Visit: Yes Status: Acute Subjective - Subjective Date of service: 05/11/20 Principal diagnosis: s/p repeat at term Interval history: Patient doing well with no unusual complaints at this time. Previous steri- strips removed, incision site dry and intact, new steri-strips replaced at bedside. Patient reports: appetite normal, voiding normally, pain well controlled, ambulating normally [place]: doing well Objective - Vital Signs Latest vital signs: Vital Signs Temp Pulse Resp BP BP Pulse Ox 05/11/20 08:35 97.9 F 93 H 20 99/56 05/11/20 00:52 97.9 F 94 H 20 108/71 100 05/10/20 15:39 98.1 F 93 H 20 103/65 98 Intake and Output 05/10/20 05/11/20 05/11/20 22:59 06:59 14:59 Intake Total 240 600 240 Balance 240 600 240 Intake: Oral 240 600 240 Other: Total, Intake Amount 240 240 240 # Voids Void 1 1 1
[2020-05-11 13:34] VITALS: BP 99/42
== END 2020-05-11 16:20 | disposition home or self-care (01) | DRG 765 ==
LOC: TRG 11:50 → APU 11:52 → TRG 12:34 → APU 12:36 → OB 17:29
PROVIDERS: ADMIT Obstetrics & Gynecology; ATTEND Obstetrics & Gynecology
PROC: 10D00Z1 Extraction of Products of Conception, Low, Open Approach (ICD-10-PCS; principal; 2020-05-08)
DX: O34.211 Maternal care for low transverse scar from previous cesarean delivery (principal); D62 Acute posthemorrhagic anemia; O90.81 Anemia of the puerperium; J45.909 Unspecified asthma, uncomplicated; O99.52 Diseases of the respiratory system complicating childbirth; Z3A.38 38 weeks gestation of pregnancy; Z37.0 Single live birth
CPT/HCPCS: 36415; 59025; 80074; 85014; 85018; 85025; 86850; 86900; 86901; 87806; 96360; G0378; J0690; J1100; J1885; J2270; J2370; J2405; J2590; J2765; J3490; J7120; J7121; Q0177